=== PATIENT | female | born 1980 | race Two or more races ===

== ENCOUNTER 2024-01-17 02:36 | Emergency (ER) | payer MEDICAID ==
[~2024-01-17] VITALS: Ht 157.5 cm; Wt 85.8 kg
[2024-01-17] MEDS: ALBUTEROL SULF 2.5 MG/0.5ML(0.5%) NEB SOLN NEB ONE (03:07)
[2024-01-17] MEDS: IPRATROPIUM BROM 0.5 MG/2.5ML INH SOL NEB ONE (03:07)
--- NOTE | 2024-01-17 04:07 | DVH ---
Examination: CXR2 Clinical Indication: cough Comparison: None. Technique: Frontal and lateral radiograph of the chest was obtained. Findings: Lungs are clear and well expanded with no pulmonary infiltrate or pleural effusion. There is no pneu mothorax. The cardiomediastinal silhouette is within normal limits. No acute osseous abnormality is seen. Degenerative changes in the mid and lower thoracic spine. Atherosclerotic calcification of the aortic arch. Impression: No acute cardiopulmonary disease is seen. Electronically Signed 01/17/2024 04:06 Asia Lopez
[2024-01-17 04:56] LABS: Basophils # (auto) 0.1 10 ^3/uL (0-0.2); Basophils % (auto) 0.6 % (0.0-2.0); Eosinophils # (auto) 0.3 10 ^3/uL (0-0.8); Eosinophils % (auto) 2.4 % (0.0-7.0); Hematocrit 40.3 % (36.0-46.0); Hemoglobin 13.2 g/dL (12.2-16.2); Lymphocytes # (auto) 3.8 10 ^3/uL (0.4-5.4); Lymphocytes % (auto) 32.9 % (10.0-50.0); Mean Corpuscular Hemoglobin 29.9 pg (28.0-32.0); Mean Corpuscular Hgb Conc. 32.8 g/dL (32.0-36.0); Mean Corpuscular Volume 90.9 fL (80.0-100.0); Monocytes # (auto) 1.1 10 ^3/uL (0-1.3); Monocytes % (auto) 9.5 % (0.0-12.0); Neutrophils # (auto) 6.3 10 ^3/uL (1.6-8.6); Neutrophils % (auto) 54.6 % (37.0-80.0); Nucleated Red Blood Cells % 0.1 %; Platelet Count (auto) 346 10^3/uL (140-450); Red Blood Cells 4.44 10^6/uL (4.0-5.20); Red Cell Distribution Width 13.9 % (11.8-14.3); White Blood Cell 11.5 10^3/uL (4.4-10.8)
[2024-01-17 05:04] LABS: Sodium 141 mmol/L (136-145)
[2024-01-17 05:05] LABS: Anion Gap 8 (5-15); Calcium 8.9 mg/dL (8.7-10.4); Carbon Dioxide 25 mmol/L (20-31)
[2024-01-17 05:10] LABS: Blood Urea Nitrogen 13 mg/dL (9-23); Glucose 103 mg/dL (74-106)
[2024-01-17 05:24] LABS: Chloride 108 mmol/L (98-107)
--- NOTE | 2024-01-17 05:50 | ED.PDOC ---
History of Present Illness HPI Comments 43-year-old female previously healthy presents with nonproductive cough since December 08, 2023. Patient reports she has previously told she had bronchitis received steroids and azithromycin and was feeling better our cough has returned. She reports last night she was feeling extremely short of breath coughing excessively became very anxious decided to come the hospital. She denies any fever chills nausea vomiting diarrhea dysuria or polyuria sick contacts or recent travel. Chief Complaint: Cough Time Seen by MD: 02:39 Reviewed Notes: Nurses Notes Allergies: Coded Allergies: NO KNOWN ALLERGIES (Unverified , 01/17/24) Information Source: Patient Mode of Arrival: Ambulatory Past Medical History PAST MEDICAL HISTORY: Denies Surgical History: Denies all surgeries REHABILITATION PROGRAM MANAGER History: No Pertinent REHABILITATION PROGRAM MANAGER History Respiratory: reports: cough All Other Systems: Reviewed and Negative Physical Exam General Appearance: No Apparent Distress, Normal HEENT: Normal ENT Inspection, Pharynx Normal, TMs Normal Neck: Full Range of Motion, Non-Tender, Normal, Normal Inspection Respiratory: Chest Non-Tender, Lungs Clear, No Accessory Muscle Use, No Respiratory Distress, Normal Breath Sounds, Other (Cough) Cardiovascular: No Edema, No JVD, No Murmur, No Gallop, Normal Peripheral Pulses, Regular Rate/Rhythm Breast Exam: Deferred Gastrointestinal: No Organomegaly, Non Tender, No Pulsatile Mass, Normal Bowel Sounds, Soft Genitalia: Deferred Pelvic: Deferred Rectal: Deferred Extremities: No calf tenderness, Normal capillary refill, Normal inspection, Normal range of motion, Non-tender, No pedal edema Musculoskeletal : Apperance: Normal Neurologic: Alert, male infertility specialist II-XII nml as Tested, No Motor Deficits, Normal Affect, Normal Mood, No Sensory Deficits Cerebellar Function: Normal Reflexes: Normal Skin: Dry, Normal Color, Warm Lymphatic: No Adenopathy Was a procedure done? Was a procedure done?: No Differential Dx Considerations may include: Viral syndrome, bronchitis, pneumonia X-Ray, Labs, Meds, VS Vital Signs Date Time Temp Pulse Resp B/P (MAP) Pulse Ox O2 Delivery O2 Flow Rate FiO2 01/17/24 03:07 18 98 Room Air* 0 21 01/17/24 02:45 16 96 Room Air* 0 21 01/17/24 02:45 98.8 94 16 120/72 (88) 96 Lab Test 01/17/24 04:42 Range/Units White Blood Count 11.5 H 4.4-10.8 10^3/uL Red Blood Count 4.44 4.0-5.20 10^6/uL Hemoglobin 13.2 12.2-16.2 g/dL Hematocrit 40.3 36.0-46.0 % Mean Corpuscular Volume 90.9 80.0-100.0 fL Mean Corpuscular Hemoglobin 29.9 28.0-32.0 pg Mean Corpuscular Hemoglobin Concent 32.8 32.0-36.0 g/dL Red Cell Distribution Width 13.9 11.8-14.3 % Platelet Count 346 140-450 10^3/uL Mean Platelet Volume 7.4 6.9-10.8 fL Neutrophils (%) (Auto) 54.6 37.0-80.0 % Lymphocytes (%) (Auto) 32.9 10.0-50.0 % Monocytes (%) (Auto) 9.5 0.0-12.0 % Eosinophils (%) (Auto) 2.4 0.0-7.0 % Basophils (%) (Auto) 0.6 0.0-2.0 % Neutrophils # (Auto) 6.3 1.6-8.6 10 ^3/uL Lymphocytes # (Auto) 3.8 0.4-5.4 10 ^3/uL Monocytes # (Auto) 1.1 0-1.3 10 ^3/uL Eosinophils # (Auto) 0.3 0-0.8 10 ^3/uL Basophils # (Auto) 0.1 0-0.2 10 ^3/uL Nucleated Red Blood Cells 0.1 % Sodium Level 141 136-145 mmol/L Potassium Level 3.0 L 3.5-5.1 mmol/L Chloride Level 108 H 98-107 mmol/L Carbon Dioxide Level 25 20-31 mmol/L Anion Gap 8 5-15 Blood Urea Nitrogen 13 9-23 mg/dL Creatinine 0.62 0.550-1.02 mg/dL Glomerular Filtration Rate Calc 112 >90 mL/min BUN/Creatinine Ratio 21.0 H 10.0-20.0 Serum Glucose 103 74-106 mg/dL Calcium Level 8.9 8.7-10.4 mg/dL Current Medications Medications (Trade) Dose Ordered Sig/Lukas Route Start Time Stop Time Status Last Admin Albuterol (Ventolin Medneb) 5 mg ONCE ONCE NEB 01/17/24 03:00 01/17/24 03:01 DC 01/17/24 03:07 Ipratropium [place] (Atrovent Medneb) 0.5 mg ONCE ONCE NEB 01/17/24 03:00 01/17/24 03:01 DC 01/17/24 03:07 Time of 1ST Reevaluation: 05:49 Reevaluation 1ST: Improved Patient Education/Counseling: Diagnosis, Treatment Family Education/Counseling: No Family Present Departure 1 Departure Time of Disposition: 05:49 (Patient likely with bronchitis or viral syndrome. We will discharge patient home with outpatient follow up) Impression: Primary Impression: Cough Qualified Codes: R05.1 - Acute cough Additional Impression: Viral syndrome Disposition: 01 HOME / SELF CARE / HOMELESS Condition: Stable Additional Instructions: You likely have a viral illness. It is important to stay well rested and well hydrated. You can take Tylenol and Motrin as needed for pain and fever. For a sore throat you can drink warm tea with honey. You can take [id number] pseudoephedrine for nasal congestion. He should follow up with your regular doctor within 1 week to ensure you are doing better. If your symptoms worsen or you have any other concerns please return to the emergency room. Discharged With: Self Critical Care Note Critical Care Time?: No Stability Stability form required: MILES Alvarado MD Jan 17, 2024 05:50
[2024-01-17] MEDS: ACETAMINOPHEN 325 MG TAB PO ONE (05:53)
[2024-01-17 06:00] VITALS: BP 118/78; PULSE 92; RESP 18; TEMP 98.5; O2SAT 98
[2024-01-17] MEDS: DexAMETHasone SOD PHOS 10MG/1ML VIAL INJ PO ONE (06:05)
== END 2024-01-17 06:08 | disposition home or self-care (01) ==
LOC: ER 02:36
DX: B34.9 Viral infection, unspecified (principal)
CPT/HCPCS: 36415; 71046; 80048; 85025; 94640; 99284; J1100

== ENCOUNTER 2024-01-22 07:15 | Emergency (ER) | payer MEDICAID ==
[~2024-01-22] VITALS: Ht 157.5 cm; Wt 77.3 kg
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
[2024-01-22 08:11] VITALS: BP 129/78; PULSE 86; RESP 18; TEMP 97.9; O2SAT 99
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
[2024-01-22] MEDS ORDERED: METH-1182 PO (09:13)
[2024-01-22] MEDS ORDERED: IBUP-1456 PO (09:13)
== END 2024-01-22 09:22 | disposition home or self-care (01) ==
LOC: EDBD 07:15 → ER 07:15
DX: S56.911A Strain of unspecified muscles, fascia and tendons at forearm level, right arm, initial encounter (principal); S80.11XA Contusion of right lower leg, initial encounter; R51.9 Headache, unspecified; F15.90 Other stimulant use, unspecified, uncomplicated; V89.2XXA Person injured in unspecified motor-vehicle accident, traffic, initial encounter; Y93.89 Activity, other specified; Y92.89 Other specified places as the place of occurrence of the external cause; Y99.8 Other external cause status
CPT/HCPCS: 70450; 73080; 73590